=== PATIENT | female | born 1990 | race African-American/Black ===

== ENCOUNTER 2021-11-22 07:17 | Emergency (ER) | payer BC ==
[~2021-11-22] VITALS: Ht 154.9 cm; Wt 77.1 kg
[2021-11-22] MEDS ORDERED: AUGMENTIN 875-1 EACH PO (09:14)
== END 2021-11-22 09:27 | disposition home or self-care (01) ==
LOC: ER 07:17
PROVIDERS: Emergency Medicine
DX: J01.10 Acute frontal sinusitis, unspecified (principal); Z20.822 Contact with and (suspected) exposure to COVID-19; J01.00 Acute maxillary sinusitis, unspecified; J11.1 Influenza due to unidentified influenza virus with other respiratory manifestations